=== PATIENT | female | born 1980 | race Caucasian/White ===

== ENCOUNTER 2017-05-08 01:15 | Inpatient (IN) | END 2017-05-10 17:40 | disposition home or self-care (01) | DRG 775 | DX: O80 Encounter for full-term uncomplicated delivery (principal); Z37.0 Single live birth; Z3A.37 37 weeks gestation of pregnancy ==

== ENCOUNTER 2017-07-30 11:35 | Emergency (ER) | payer OTHER ==
[~2017-07-30] VITALS: Ht 172.7 cm; Wt 56.5 kg
[~2017-07-30 11:35] MED LIST: PRENAT PO
[2017-07-30 12:01] VITALS: Ht 172.7 cm; Wt 56.5 kg
--- NOTE | 2017-07-30 13:37 | RADRPT ---
PROCEDURE: US Pelvis Transabdominal . CLINICAL INDICATION: vaginal bleeding. TECHNIQUE: Multiple sonographic images of the pelvis were obtained utilizing helm scale and color flow imaging with transabdominal technique. The images were reviewed on a PACS workstation. COMPARISON: April 05, 2015 FINDINGS: The uterus is visualized and measures 13.4 x 6.4 x 7.2 cm. The endometrial echo complex measures 32. 0 mm in thickness. No gross increased vascularity is seen in the endometrium. No uterine masses are identified. The ovaries are not well visualized. Small amount of free fluid is identified in the cul-de-sac. IMPRESSION: Markedly thickened endometrium. Retained products of conception cannot be excluded. Consultation wit h gynecology and potential correlation with dilatation and curettage should be considered. Enlarged uterus. Finding may reflect a recent uterus. Small amount of nonspecific free fluid in the cul-de-sac. This could be physiologic. Ovaries not well visualized. If characterization of these structures is needed repeat exam or CT/MRI is recommended. If further characterization of the organs of the pelvis is needed MRI should be considered. RPTAT: AA .Keon Oreilly MD, Date Time Electronically viewed and signed by .Keon Oreilly MD, MD on 07/30/2017 13:36 .P/
[2017-07-30] MEDS ORDERED: HYDR-902 PO (14:16)
[2017-07-30] MEDS ORDERED: MEDR10TA2 PO (14:16)
--- NOTE | 2017-07-30 14:19 | ERD ---
ER Documentation Chief Complaint Chief Complaint EXCESSIVE VAG BLEEDING SINCE 0900, HAD NATURAL 05/08/17 HPI This a 37-year-old female who is a few months . The patient says she had a regular menstrual cycle last month for the first cycle after her baby. She says she started her period yesterday she has had very heavy bleeding with cramps. She is passing clots but no dizziness no near-syncope. She is having some diffuse cramps in the pelvic region that are off and on mostly on the right side. There is no back pain no fever ROS All systems reviewed and are negative except as per history of present illness. Medications Home Meds Active Scripts Medroxyprogesterone Acetate* (Provera*) 10 Mg Tablet, 10 MG PO BID for 5 Days, # 10 TAB Prov:MARGARETTE HARTMANN DO 07/30/17 Hydrocodone/Acetaminophen ([place]hall 10-325 Tablet) 1 Each Tablet, 1 TAB PO Q6H Y for PAIN, #20 TAB Prov:MARGARETTE HARTMANN DO 07/30/17 Reported Medications Multivit/Min/Fol Ac/Iron/Pren* ( S*) 1 Tab Tab, 1 TAB PO DAILY, TAB 05/08/17 Allergies Allergies: Coded Allergies: No Known Allergy (Unverified , 04/09/15) PMhx/Soc History of Surgery: Yes (OVARIAN SURG) Anesthesia Reaction: No Hx Neurological Disorder: No Hx Respiratory Disorders: No Hx Cardiac Disorders: No Hx Psychiatric Problems: No Hx Miscellaneous Medical Probl: No Hx Alcohol Use: No Hx Substance Use: No Hx Tobacco Use: No Smoking Status: Never smoker FmHx Family History: No coronary disease Physical Exam Vitals Vital Signs Date Time Temp Pulse Resp B/P Pulse Ox O2 Delivery O2 Flow Rate FiO2 07/30/17 12:01 99.5 97 18 145/95 97 Physical Exam Const: Well-developed, well-nourished Head: Atraumatic, normocephalic Eyes: Normal Conjunctiva, PERRLA, EOMI, normal sclera, no nystagmus ENT: Normal External Ears, Nose and Mouth, moist mucus membranes. Neck: Full range of motion. No meningismus, no lymphadenopathy. Resp: Clear to auscultation bilaterally, no wheezing, rhonchi, rales Cardio: Regular rate and rhythm, no murmurs, S1 S2 present Abd: Soft, diffuse lower pelvic tenderness non distended. Normal bowel sounds, no guarding or rebound, no pulsitile abdominal masses or bruits Skin: No petechiae or rashes, no ecchymosis , no maculopapular rash Back: No midline or flank tenderness Ext: No cyanosis, or edema, FROM x 4, normal inspection, neurovascularly intact x 4 Neur: Awake and alert, STR 5/5 x 4, sensation intact x 4, no focal findings, cerebellum intact Psych: Normal Mood and Affect Results 24 hrs Current Medications Medications (Trade) Dose Ordered Sig/Damien Route PRN Reason Start Time Stop Time Status Last Admin Dose Admin Acetaminophen/ Hydrocodone Bitart ([place] ()) 1 tab ONCE ONCE PO 07/30/17 14:30 07/30/17 14:31 Procedures/MDM PROCEDURE: US Pelvis Transabdominal . CLINICAL INDICATION: vaginal bleeding. TECHNIQUE: Multiple sonographic images of the pelvis were obtained utilizing helm scale and color flow imaging with transabdominal technique. The images were reviewed on a PACS workstation. COMPARISON: April 05, 2015 FINDINGS: The uterus is visualized and measures 13.4 x 6.4 x 7.2 cm. The endometrial echo complex measures 32.0 mm in thickness. No gross increased vascularity is seen in the endometrium. No uterine masses are identified. The ovaries are not well visualized. Small amount of free fluid is identified in the cul-de-sac. IMPRESSION: Markedly thickened endometrium. Retained products of conception cannot be excluded. Consultation with gynecology and potential correlation with dilatation and curettage should be considered. Enlarged uterus. Finding may reflect a recent uterus. Small amount of nonspecific free fluid in the cul-de-sac. This could be physiologic. Ovaries not well visualized. If characterization of these structures is needed repeat exam or CT/MRI is recommended. If further characterization of the organs of the pelvis is needed MRI should be considered. RPTAT: AA .Keon Oreilly MD, MD Date Time Electronically viewed and signed by .Keon Oreilly MD, MD on 07/30/2017 13:36 .P/ CC: MARGARETTE HARTMANN DO Patient has a thickened endometrium consistent with likely estrogen dominance. We will discharge home with some Provera short course with [place]. The patient is not breast-feeding. She is Bj had one menstrual cycle that was normal last month. She is having some hormonal fluctuations at this point. She will need to follow-up with her OB Departure Diagnosis: Primary Impression: Menorrhagia Menorrahagia type: with regular cycle Qualified Code: N92.0 - Menorrhagia with regular cycle Additional Impression: Excessive vaginal bleeding Condition: Stable Patient Instructions: Menorrhagia Referrals: NO PRIMARY,CARE PHYSICIAN (PCP) MARGARETTE HARTMANN DO Jul 30, 2017 14:19
[2017-07-30] MEDS ORDERED: HYDROCODONE/APAP (10/325) TAB PO ONE (14:30)
[2017-07-30 14:45] VITALS: BP 120/82; PULSE 75; RESP 18; TEMP 98
== END 2017-07-30 14:46 | disposition home or self-care (01) ==
LOC: FTE 11:35
DX: N92.0 Excessive and frequent menstruation with regular cycle (principal)
CPT/HCPCS: 76856; Z7502; Z7610